=== PATIENT | male | born 1950 | race Caucasian/White ===

== ENCOUNTER 2018-11-11 17:26 | Emergency (ER) | payer BC, MEDICARE ==
[~2018-11-11] VITALS: Ht 180.3 cm; Wt 97.7 kg
[2018-11-11 17:32] VITALS: Ht 180.3 cm; Wt 97.7 kg
[2018-11-11] MEDS ORDERED: SYNTHROID125 MCG PO (17:36)
[2018-11-11] MEDS ORDERED: LISINOPRIL10 MG PO (17:37)
[2018-11-11] MEDS ORDERED: PROTONIX40 MG PO (17:37)
[2018-11-11] MEDS ORDERED: LIPITOR40 MG PO (17:38)
[2018-11-11] MEDS ORDERED: VITAMIN D2000 UNIT PO (17:38)
[2018-11-11] MEDS ORDERED: BAYER CHEWABLE81 MG PO (17:39)
[2018-11-11 19:08] VITALS: BP 142/90
== END 2018-11-11 19:09 | disposition home or self-care (01) ==
LOC: D.ER 17:26
DX: I10 Essential (primary) hypertension (principal)